=== PATIENT | male | born 2000 | race Caucasian/White ===

== ENCOUNTER 2021-02-05 07:32 | Emergency (ER) | payer OTHER, SELFPAY ==
[2021-02-05 07:39] VITALS: BP 143/82; PULSE 104; RESP 18; TEMP 36.9; O2SAT 97
--- NOTE | 2021-02-05 08:06 | ED.LOWEXIN ---
HPI - Extremity Injury (Lower) General Chief Complaint: Extremity Injury, Lower Stated Complaint: bilateral leg pain Time Seen by Provider: 02/05/21 07:36 Source: patient Mode of arrival: ambulatory Limitations: no limitations History of Present Illness HPI Narrative: This is a 20 year old male who presents for evaluation lower leg pain. He states that he started having pain intermittent last night and it was worse this morning. He states yesterday he worked a 10 hour shift in which he was constantly up and he has been up most of the night. His pain was most severe at 5 am . He states he could barely walk because the pain was so severe. He reports he has only had 1 hour asleep and he has been up all night and morning hanging out with family. He denies associated numbness, tingling, swelling, tenderness, or redness. He took ibuprofen 1 hour prior to coming to ER so he is currently PainFree. He denies chest pain or sob. Related Data Home Medications Medication Instructions Recorded Confirmed clindamycin phosphate 1 % topical 1 applic TOPICAL BID 09/17/19 solution tretinoin microspheres 0.1 % 1 applic TOPICAL QPM 09/17/19 topical gel Allergies Allergy/AdvReac Type Severity Reaction Status Date / Time No Known Allergies Allergy Verified 02/05/21 07:44 Review of Systems Review of Systems: All systems reviewed & are unremarkable except as noted in HPI and below Constitutional: Constitutional: Denies chills and Denies fever(s) Cardiovascular: Cardiovascular: Denies chest pain Respiratory: Respiratory: Denies cough and Denies dyspnea Gastrointestinal: Gastrointestinal: Denies abdominal pain, Denies nausea and Denies vomiting Musculoskeletal: Musculoskeletal: Reports muscle cramps PMFSH Past Medical History Medical History (Updated 02/05/21 @ 09:06 by Letty Del Toro MD) Acne Family History Family History (Updated 07/02/19 @ 15:21 by DOCTOR UNKNOWN) Father Family history of malignant neoplasm of kidney Social History Social History (Updated 09/17/19 @ 13:04 by Chastity Hu) Smoking status: Former smoker Second hand tobacco smoke exposure: No Smoking end date: 10/14/18 Alcohol intake: current Substance use: former Substance use type: marijuana Gender identity (if verbalized by the patient): Male Exam Const: General: no acute distress and alert Orientation/consciousness: patient oriented x3 Eyes: EOM: EOMs intact bilaterally Chest: Chest palpation & inspection: normal inspection of the chest Resp: Effort & Inspection: normal respiratory effort and no retractions Auscultation: clear to auscultation bilaterally Cardio: Rate: regular rate Rhythm: regular rhythm Heart sounds: no murmurs GI: GI Palp: Yes Soft to palpation, No Tenderness to palpation present (GI) and No Guarding due to palpation present (GI) Auscultation: normal bowel sounds Skin: General skin exam: normal color Rashes: no rashes Neuro: General: patient oriented x3, moves all extremities and CN's II-XI intact bilaterally Psych: Mental Status: mental status grossly normal Affect: normal affect Course Reevaluation(s) Reevaluation #1: Patient's pain has resolved. I discussed labs are unremarkable. He will go home and hydrate. Date: 02/05/21 Time: 09:03 Vital Signs Vital signs: Vital Signs Temperature 98.4 F 02/05/21 07:39 Pulse Rate 104 H 02/05/21 07:39 Respiratory Rate 18 02/05/21 07:39 Blood Pressure 143/82 H 02/05/21 07:39 Pulse Oximetry 97 02/05/21 07:39 Temperature 98.4 F 02/05/21 07:39 Pulse Rate 104 H 02/05/21 07:39 Respiratory Rate 18 02/05/21 07:39 Blood Pressure 143/82 H 02/05/21 07:39 Pulse Oximetry 97 02/05/21 07:39 MDM - Extremity Injury (Lower) Lab Data Attestation: I reviewed the patient's lab results. Result diagrams: 02/05/21 08:11 02/05/21 08:11 Labs: Lab Results 02/05/21 02/05/21
[2021-02-05 08:20] LABS: Basophils Percent Auto 0.5 % (0.2-1.2); Eosinophils Absolute Auto 0.3 K/mm3 (0-0.3); Eosinophils Percent Auto 3.6 % (0-4.4); Hematocrit 46.5 % (42.0-52.0); Hemoglobin 16.2 g/dL (14.0-18.0); Immature Granulocyte Absolute 0.08 K/mm3 (0.00-0.031); Lymphocytes Absolute Auto 3.92 K/mm3 (0.9-3.2); Lymphocytes Percent Auto 50.4 % (18.3-44.2); Mean Corpuscular HGB Conc 34.8 g/dl (32-36); Mean Corpuscular Hemoglobin 31.1 pg (26-34); Mean Corpuscular Volume 89.3 fl (80-100); Mean Platelet Volume 9.7 fl (7.4-10.4); Monocytes Absolute Auto 0.6 K/mm3 (0.1-0.6); Monocytes Percent Auto 7.7 % (2.6-8.5); Neutrophils Absolute Auto 2.9 K/mm3 (1.3-6.7); Neutrophils Percent Auto 36.8 % (45.5-73.1); Platelet Count Result 237 k/mm3 (150-375); Red Blood Count 5.21 M/mm3 (4.6-6.20); White Blood Count 7.8 K/mm3 (4.5-10.0)
[2021-02-05 08:22] LABS: Add Urine Microscopic? NO; Appearance Urine Clear (Clear); Bilirubin Urine Negative (Negative); Blood Urine Negative (Negative); Color Urine Yellow (Yellow); Glucose Urine UA Negative (Negative); Ketones Urine Negative (Negative); Leukocyte Esterase Ur Negative LEU/UL (Negative); Nitrate Urine Negative (Negative); Protein Urine Negative (Negative); Specific Grav Ur 1.017 (1.001-1.035); Urobilinogen Urine Negative mg/dL (<2.0)
[2021-02-05 08:30] LABS: Alanine Aminotransferase 28 U/L (4-50); Albumin Level 4.6 g/dL (3.7-5.6); Alkaline Phosphatase 79 U/L (58-237); Anion Gap 7 mmol/L (8-16); Aspartate Amino Transferase 27 U/L (17-59); Bilirubin,Total 0.2 mg/dL (0.2-1.3); Blood Urea Nitrogen 16 mg/dL (8-21); Calcium 8.9 mg/dL (8.9-10.7); Carbon Dioxide 26 mmol/L (22-30); Chloride 105 mmol/L (98-107); Creatine Kinase 80 U/L (55-170); Estimated CRCL calculation 108 ml/min; Estimated Glomerular Filt Rate > 60; Glucose 91 mg/dL (75-110); Potassium 4.1 mmol/L (3.4-5.0); Sodium 138 mmol/L (134-143)
[2021-02-05 08:48] LABS: Partial Thromboplastin Time 26.2 SECONDS (22.3-36.8); Prothrombin Time 13.7 Seconds (11.1-14.7)
[2021-02-05 08:51] LABS: D Dimer 0.27 ug/mL (<0.48)
== END 2021-02-05 09:15 | disposition home or self-care (01) ==
PROVIDERS: Emergency Provider General Practice
DX: M79.662 Pain in left lower leg (principal); M79.661 Pain in right lower leg; Z87.891 Personal history of nicotine dependence
CPT/HCPCS: 36415; 80053; 81003; 82550; 85025; 85380; 85610; 85730; 99283